=== PATIENT | male | born 1940 | race Caucasian/White ===

== ENCOUNTER → 2022-05-27 09:03 | Outpatient (BNVA) | payer MEDICARE, SELFPAY | PROVIDERS: PCP Nurse Practitioner Family; Visit Provider Nurse Practitioner Family | DX: M25.572 Pain in left ankle and joints of left foot (principal); M79.672 Pain in left foot | CPT/HCPCS: 73610; 73630 ==

== ENCOUNTER → 2023-07-21 10:02 | Outpatient (BNVA) | payer MEDICARE, SELFPAY | PROVIDERS: PCP Nurse Practitioner Family; Visit Provider Emergency Medicine | DX: R39.9 Unspecified symptoms and signs involving the genitourinary system (principal); Z12.5 Encounter for screening for malignant neoplasm of prostate; N39.0 Urinary tract infection, site not specified; N39.43 Post-void dribbling; R35.1 Nocturia; N63.22 Unspecified lump in the left breast, upper inner quadrant | CPT/HCPCS: 81000; 87086; G0103 ==